=== PATIENT | female | born 1950 | race Caucasian/White ===

== ENCOUNTER 2017-05-18 06:26 | Day surgery (SDC) | payer MEDICARE ==
[~2017-05-18 06:26] MED LIST: ALENDRONATE70 MG PO; ANTI-DIARRHE2 M1 PO; DAILY INHALER IN; DIPHENHYDRAM25 MG PO; FUROSEMIDE40 MG PO; NITROSTAT0.4 MG SL; OMEPRAZOLE10 MG PO; PAIN RELIEF EX500 M1 PO; PROAIR HFA IN
[2017-05-18 10:09] VITALS: BP 140/63
== END 2017-05-18 10:30 | disposition home or self-care (01) ==
LOC: ENDO 06:26 → ORM 07:00 → ENDO 08:05
PROVIDERS: ATTEND Surgery
PROC: 0DBF8ZX Excision of Right Large Intestine, Via Natural or Artificial Opening Endoscopic, Diagnostic (ICD-10-PCS; principal; 2017-05-18)
PROC: 0DJ08ZZ Inspection of Upper Intestinal Tract, Via Natural or Artificial Opening Endoscopic (ICD-10-PCS; 2017-05-18)
DX: Z12.11 Encounter for screening for malignant neoplasm of colon (principal); D12.2 Benign neoplasm of ascending colon; K44.9 Diaphragmatic hernia without obstruction or gangrene; K57.30 Diverticulosis of large intestine without perforation or abscess without bleeding; I11.0 Hypertensive heart disease with heart failure; I50.9 Heart failure, unspecified; E78.5 Hyperlipidemia, unspecified; K21.9 Gastro-esophageal reflux disease without esophagitis; J44.9 Chronic obstructive pulmonary disease, unspecified; Z87.19 Personal history of other diseases of the digestive system; Z86.010 Personal history of colon polyps

== ENCOUNTER 2018-08-16 08:00 | Day surgery (SDC) | payer MEDICARE ==
[~2018-08-16 08:00] MED LIST changes: +CYCLOBENZAPRINE10 MG PO; +HYDROCO/APAP1 TA9 PO; +PRAMIPEXOLE0.125 MG PO
[2018-08-16] MEDS ORDERED: MOTRIN800 MG PO (11:55)
[2018-08-16 12:26] VITALS: BP 157/69
== END 2018-08-16 12:40 | disposition home or self-care (01) ==
LOC: ORM 08:00
PROVIDERS: ATTEND Surgery
PROC: 0JB80ZZ Excision of Abdomen Subcutaneous Tissue and Fascia, Open Approach (ICD-10-PCS; principal; 2018-08-16)
DX: D17.1 Benign lipomatous neoplasm of skin and subcutaneous tissue of trunk (principal); E78.5 Hyperlipidemia, unspecified; K21.9 Gastro-esophageal reflux disease without esophagitis; J44.9 Chronic obstructive pulmonary disease, unspecified; I11.0 Hypertensive heart disease with heart failure; I50.9 Heart failure, unspecified

== ENCOUNTER 2018-09-08 12:09 | Emergency (ER) | payer MEDICARE ==
[~2018-09-08] VITALS: Ht 170.2 cm; Wt 81.8 kg
[~2018-09-08 12:09] MED LIST changes: +MOTRIN800 MG PO
== END 2018-09-08 12:40 | disposition home or self-care (01) ==
LOC: ED 12:09
DX: Z48.01 Encounter for change or removal of surgical wound dressing (principal)

== ENCOUNTER → 2018-12-19 | Outpatient (REF) | payer MEDICARE ==
[~2018-12-19] MED LIST changes: +ORPHENADRINE100 MG PO; +TORADOL PO
[2018-12-19 11:04] LABS: ALBUMIN 4.1 g/dL (3.2-5.0); ALKALINE PHOSPHATASE 87 u/l (38-126); ANION GAP 12 (6-22 (CALC)); BILIRUBIN, TOTAL 0.3 mg/dL (0.0-1.4); BUN 13 mg/dL (8-23); BUN/CREATININE RATIO 23 (12-20 (CALC)); CARBON DIOXIDE 24 mmol/l (22-30); CHLORIDE 113 mmol/l (95-108); CREATININE 0.6 mg/dL (0.5-1.0); GFR > 60 ML/MIN (>=60 (CALC)); GFR FOR AFR.AMER. > 60 ML/MIN (>=60 (CALC)); POTASSIUM 4.4 mmol/l (3.5-5.1); SGOT/AST 16 u/l (9-36); SODIUM 144 mmol/l (137-146)
[2018-12-19 11:32] LABS: TSH, 3RD GENERATION 1.72 uIU/mL (0.47 - 4.68)
== END | disposition home or self-care (01) ==
LOC: LAB 09:39
PROVIDERS: ATTEND Internal Medicine Endocrinology, Diabetes & Metabolism
DX: E04.2 Nontoxic multinodular goiter (principal); E21.0 Primary hyperparathyroidism; E55.9 Vitamin D deficiency, unspecified; I10 Essential (primary) hypertension

== ENCOUNTER 2018-12-28 13:24 | Emergency (ER) | payer MEDICARE ==
[~2018-12-28] VITALS: Ht 170.2 cm; Wt 84.5 kg
[~2018-12-28 13:24] MED LIST changes: -ORPHENADRINE100 MG PO; -TORADOL PO
[2018-12-28 15:06] LABS: ANION GAP 14 (6-22 (CALC)); BUN 11 mg/dL (8-23); BUN/CREATININE RATIO 18 (12-20 (CALC)); CARBON DIOXIDE 25 mmol/l (22-30); CHLORIDE 106 mmol/l (95-108); CREATININE 0.6 mg/dL (0.5-1.0); GFR > 60 ML/MIN (>=60 (CALC)); GFR FOR AFR.AMER. > 60 ML/MIN (>=60 (CALC)); POTASSIUM 3.7 mmol/l (3.5-5.1); SODIUM 142 mmol/l (137-146)
[2018-12-28 15:08] LABS: URINE BILIRUBIN - DIPSTICK NEGATIVE (NEGATIVE); URINE BLOOD DIPSTICK TRACE-INTACT (NEGATIVE); URINE COLOR YELLOW; URINE GLUCOSE - DIPSTICK NEGATIVE (NEGATIVE); URINE KETONE NEGATIVE (NEGATIVE); URINE LEUK ESTERASE NEGATIVE (NEGATIVE); URINE NITRITE - DIPSTICK NEGATIVE (Negative); URINE PH 5.5 (4.5-8.0); URINE PROTEIN - DIPSTICK NEGATIVE (NEG-TRACE); URINE SPECIFIC GRAVITY 1.015; URINE UROBILINOGEN - DIPSTICK 0.2 E.U./dL (0.2)
[2018-12-28 15:54] VITALS: BP 182/98
[2018-12-29] MEDS ORDERED: TORADOL PO (19:45)
[2018-12-29] MEDS ORDERED: ORPHENADRINE100 MG PO (19:45)
== END 2018-12-28 15:53 | disposition home or self-care (01) ==
LOC: ED 13:24
PROVIDERS: Family Medicine
DX: S50.02XA Contusion of left elbow, initial encounter (principal); S20.212A Contusion of left front wall of thorax, initial encounter; S70.02XA Contusion of left hip, initial encounter; F17.210 Nicotine dependence, cigarettes, uncomplicated; E78.5 Hyperlipidemia, unspecified; W01.198A Fall on same level from slipping, tripping and stumbling with subsequent striking against other object, initial encounter; Y93.E9 Activity, other interior property and clothing maintenance; Y92.009 Unspecified place in unspecified non-institutional (private) residence as the place of occurrence of the external cause

== ENCOUNTER 2018-12-29 15:01 | Emergency (ER) | payer MEDICARE ==
[~2018-12-29] VITALS: Ht 170.2 cm; Wt 84.0 kg
[2018-12-29 19:45] VITALS: BP 143/66
[2018-12-29] MEDS ORDERED: TORADOL PO (19:45)
[2018-12-29] MEDS ORDERED: ORPHENADRINE100 MG PO (19:45)
== END 2018-12-29 20:01 | disposition home or self-care (01) ==
LOC: ED 15:01
DX: S20.212A Contusion of left front wall of thorax, initial encounter (principal); E78.5 Hyperlipidemia, unspecified; F17.210 Nicotine dependence, cigarettes, uncomplicated; W19.XXXA Unspecified fall, initial encounter
CPT/HCPCS: Q9967

== ENCOUNTER 2020-09-15 06:58 | Day surgery (SDC) | payer MEDICARE ==
[~2020-09-15] VITALS: Ht 172.7 cm; Wt 197.0 kg
[~2020-09-15 06:58] MED LIST changes: +ADVAIR DISK1 INH; +ALPRAZOLAM0.25 MG PO; +EPIPEN 2-P0.3 MG/0.3 IM; +ORPHENADRINE100 MG PO; +TORADOL PO; +TRAMADOL HCL50 MG PO
[2020-09-15 08:52] VITALS: BP 152/69
== END 2020-09-15 09:00 | disposition home or self-care (01) ==
LOC: ENDO 06:58 → ORM 09:00 → ENDO 09:00
PROVIDERS: ATTEND Surgery
PROC: 0DBN8ZX Excision of Sigmoid Colon, Via Natural or Artificial Opening Endoscopic, Diagnostic (ICD-10-PCS; principal; 2020-09-15)
DX: Z12.11 Encounter for screening for malignant neoplasm of colon (principal); D12.5 Benign neoplasm of sigmoid colon; K57.30 Diverticulosis of large intestine without perforation or abscess without bleeding; K64.8 Other hemorrhoids; I10 Essential (primary) hypertension; E11.9 Type 2 diabetes mellitus without complications; D17.1 Benign lipomatous neoplasm of skin and subcutaneous tissue of trunk; F17.210 Nicotine dependence, cigarettes, uncomplicated; Z86.010 Personal history of colon polyps; Z20.828 Contact with and (suspected) exposure to other viral communicable diseases

== ENCOUNTER 2021-08-11 16:22 | Emergency (ER) | payer MEDICARE ==
[~2021-08-11] VITALS: Ht 172.7 cm; Wt 80.0 kg
[2021-08-11] MEDS ORDERED: TYLENOL # 31 TA1 PO (19:27)
[2021-08-11 19:50] VITALS: BP 148/88
== END 2021-08-11 19:55 | disposition home or self-care (01) ==
LOC: ED 16:22
DX: S42.291A Other displaced fracture of upper end of right humerus, initial encounter for closed fracture (principal); S40.211A Abrasion of right shoulder, initial encounter; I10 Essential (primary) hypertension; M06.9 Rheumatoid arthritis, unspecified; M79.7 Fibromyalgia; J45.909 Unspecified asthma, uncomplicated; G62.9 Polyneuropathy, unspecified; F17.200 Nicotine dependence, unspecified, uncomplicated; W16.032A Fall into swimming pool striking wall causing other injury, initial encounter; Y93.89 Activity, other specified; Y92.008 Other place in unspecified non-institutional (private) residence as the place of occurrence of the external cause; Z85.118 Personal history of other malignant neoplasm of bronchus and lung

== ENCOUNTER 2023-04-13 14:57 | Emergency (ER) | payer MEDICARE ==
[2023-04-13] VITALS (10 sets, daily range): BP systolic 126–161; BP diastolic 64–82
[~2023-04-13] VITALS: Ht 172.7 cm; Wt 65.8 kg
[~2023-04-13 14:57] MED LIST changes: +TYLENOL # 31 TA1 PO
[2023-04-13 15:55] LABS: GFR FOR AFR.AMER. > 60 ML/MIN (>=60 (CALC)); GFR OTHER RACES > 60 ML/MIN (>=60 (CALC))
[2023-04-13 15:59] LABS: BASO% 0.4 % (0-3); EOS% 2.7 % (0-8); HEMATOCRIT 43.2 % (37.0-47.0); HEMOGLOBIN 13.6 g/dl (12.0-16.0); IMMATURE GRANULOCYTES 0.2 % (0.0-5.0); LYMPH% 16.5 % (15-41); MEAN CELL VOLUME 94.5 fL CALC (80.0-100.0); MEAN CORPUSCULAR HGB 29.8 pG CALC (26.0-32.0); MEAN CORPUSCULAR HGB CONC 31.5 g/dL CAL (32.0-36.0); MONO% 8.1 % (2-13); NEUT# 7.62 thou/uL (2.00-7.15); NEUT% 72.1 % (42-76); RED BLOOD COUNT 4.57 mill/uL (4.20-5.60); RED CELL DISTRI WIDTH 12.5 % (11.5-15.5)
[2023-04-13 16:09] LABS: ALBUMIN 3.9 g/dL (3.2-5.0); ALKALINE PHOSPHATASE 116 u/l (38-126); BUN 11 mg/dL (8-23); BUN/CREATININE RATIO 16 (12-20 (CALC)); CARBON DIOXIDE 28 mmol/l (22-30); CHLORIDE 103 mmol/l (95-108); CREATININE 0.7 mg/dL (0.5-1.0); GFR FOR AFR.AMER. > 60 ML/MIN (>=60 (CALC)); GFR OTHER RACES > 60 ML/MIN (>=60 (CALC)); SGOT/AST 23 u/l (9-36); SODIUM 139 mmol/l (137-146); TOTAL PROTEIN 7.7 g/dL (6.3-8.2)
[2023-04-13 16:19] LABS: ANION GAP 12 (6-22 (CALC)); BILIRUBIN, TOTAL 0.2 mg/dL (0.02-1.3); POTASSIUM 3.5 mmol/l (3.5-5.1)
--- NOTE | 2023-04-16 09:35 | NUR ---
FINAL RESULTS CALLED TO [facility] [id number]
== END 2023-04-13 20:40 | disposition short-term general hospital (02) ==
LOC: ED 14:57
PROVIDERS: Family Medicine
DX: J90 Pleural effusion, not elsewhere classified (principal); J44.9 Chronic obstructive pulmonary disease, unspecified; I10 Essential (primary) hypertension; M06.9 Rheumatoid arthritis, unspecified; G62.9 Polyneuropathy, unspecified; F17.210 Nicotine dependence, cigarettes, uncomplicated; Z90.2 Acquired absence of lung [part of]; Z85.118 Personal history of other malignant neoplasm of bronchus and lung; J43.1 Panlobular emphysema; J45.909 Unspecified asthma, uncomplicated; R05.9 Cough, unspecified
CPT/HCPCS: Q9967